=== PATIENT | male | born 1990 | race Two or more races ===

== ENCOUNTER 2024-08-14 09:37 | Emergency (ER) | payer OTHER ==
[~2024-08-14] VITALS: Ht 170.2 cm; Wt 58.1 kg
[2024-08-14 13:58] LABS: HEMATOCRIT 47.5 % (39.0-48.0); HEMOGLOBIN 15.8 g/dL (13-16.00); MEAN CELL VOLUME 86.5 fL (80.0-100.00); MEAN CORPUSCULAR HEMOGLOBIN 28.8 pg (27.00-32.0); MEAN CORPUSCULAR HGB CONC 33.3 g/dl (32.0-36.0); PLATELET COUNT 194 K/uL (150-450); RED CELL DISTRIBUTION WIDTH 13.5 % (11.5-14.5)
[2024-08-14 14:18] LABS: CALCIUM 9.2 mg/dL (8.5-10.1); CREATININE SERUM 0.9 mg/dL (0.70-1.30); GFR 96.59; POTASSIUM 4.22 mEq/L (3.5-5.1)
[2024-08-14] MEDS ORDERED: ZITHROMAX TRI-500 MG PO (14:42)
== END 2024-08-14 16:15 | disposition home or self-care (01) ==
LOC: ER 09:39
PROVIDERS: General Practice
DX: J00 Acute nasopharyngitis [common cold] (principal); R05.9 Cough, unspecified; Z20.822 Contact with and (suspected) exposure to COVID-19

== ENCOUNTER → 2024-12-26 | Emergency (ER) | payer OTHER ==
[~2024-12-26] VITALS: Ht 167.6 cm; Wt 59.0 kg
[~2024-12-26] MED LIST: DICLOFENAC SODI75 MG PO; KETOROLAC TROMETHAMINE 60 MG VIAL IM ONE; TRIAMCINOLONE ACETONIDE 40 MG/ML VIAL IM ONE; TRIAMCINOLONE ACETONIDE 40 MG/ML VIAL ONE; ZITHROMAX TRI-500 MG PO
== END | disposition home or self-care (01) ==
LOC: ER 10:08
DX: M77.8 Other enthesopathies, not elsewhere classified (principal); M25.512 Pain in left shoulder

== ENCOUNTER 2025-03-28 20:41 | Emergency (ER) | payer OTHER ==
[~2025-03-28] VITALS: Ht 170.2 cm; Wt 59.9 kg
[~2025-03-28 20:41] MED LIST changes: -KETOROLAC TROMETHAMINE 60 MG VIAL IM ONE; -TRIAMCINOLONE ACETONIDE 40 MG/ML VIAL IM ONE; -TRIAMCINOLONE ACETONIDE 40 MG/ML VIAL ONE
[2025-03-28] MEDS ORDERED: HYDROCODONE/CHLORPHEN P-STIREX 5 ML ML PO STA (21:01)
[2025-03-28] MEDS ORDERED: CEFTRIAXONE SODIUM 1,000 MG VIAL IM STA (21:08)
[2025-03-28 21:37] LABS: COVID-19 AG POSITIVE (NEGATIVE)
[2025-03-28] MEDS ORDERED: KETOROLAC TROMETHAMINE 30 MG VIAL IM STA (21:49)
== END 2025-03-28 22:00 | disposition home or self-care (01) ==
LOC: ER 20:41
PROVIDERS: General Practice
DX: U07.1 COVID-19 (principal); J00 Acute nasopharyngitis [common cold]